=== PATIENT | male | born 1995 | race Two or more races ===

== ENCOUNTER 2023-08-26 21:50 | Emergency (ER) | payer BC ==
[~2023-08-26] VITALS: Ht 172.7 cm; Wt 72.0 kg
[2023-08-26 21:52] VITALS: TEMP 97.4
[2023-08-26] MEDS ORDERED: ALBU18HF12 IH ×2 (21:52→23:25)
[2023-08-26] MEDS: IPRATROPIUM BROMIDE 0.5 MG/2.5 ML NEB SOLUTION NEB ONE (22:42)
[2023-08-26] MEDS: ALBUTEROL SULFATE 2.5 MG/0.5 ML NEB SOLUTION NEB ONE (22:42)
[2023-08-26 22:50] VITALS: PULSE 74; RESP 20; O2SAT 99
[2023-08-26] MEDS: DEXAMETHASONE SOD PHOS 4 MG/ML 5 ML VIAL IM ONE (22:57)
[2023-08-26 23:07] VITALS: PULSE 84; RESP 20; O2SAT 100
[2023-08-26] MEDS ORDERED: METH4TAB3 PO (23:25)
[2023-08-27] VITALS: BP 119/88; PULSE 81; RESP 20
== END 2023-08-27 00:01 | disposition home or self-care (01) ==
LOC: EMS 21:50
DX: J45.909 Unspecified asthma, uncomplicated (principal); F12.90 Cannabis use, unspecified, uncomplicated
CPT/HCPCS: 99285; 94640; 96372; J1100